=== PATIENT | female | born 1990 | race Caucasian/White ===

== ENCOUNTER 2020-09-07 08:54 | Inpatient (IN) | payer MEDICAID ==
[2020-09-07] MEDS ORDERED: Sodium Chloride 0.9% 1,000 ML IV SCH (09:00)
[2020-09-07] MEDS ORDERED: Penicillin G Potassium 5 MILLUNITS in Sodium Chloride 0.9% 50 ML IV ONE (09:30)
[2020-09-07] MEDS ORDERED: fentaNYL 100 MCG/2 ML SDV IVPUSH PRN (09:59)
[2020-09-07] MEDS ORDERED: Sodium Chloride 0.9% 10 ML Syringe FLUSH PRN (09:59)
--- NOTE | 2020-09-07 10:08 | PCM.LDHP ---
L&D History of Present Illness - General Date of Service: 09/07/20 (labor) Admit Problem/Dx: Patient Status Order with Admit Dx/Problem 09/07/20 09:59 Patient Status [ADT] Routine Admission Diagnosis/Problem Admission Diagnosis/Problem Labor established Source of Information: Patient History Limitations: Reports: No Limitations - History of Present Illness Introduction:: This 29 year old who is 41 2/7 weeks presented in labor. Onset last night. Contractions got stronger over the night and call this morning. Presented Di lation 2-3cm pre staff. Adequate care, healthy GBS positive, will treat ABO O neg, had Rhogam at 29 weeks. 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: : 1 Para: 0 LMP (Approximate): (NURIA 08/29/20) - Infectious Disease History Infectious Disease History: Reports: Chicken Pox - Past Surgical History HEENT Surgical History: Reports: Other (See Below) Other HEENT Surgeries/Procedures: wisdom teeth out Social & Family History - Family History Family Medical History: No Pertinent Family History - Tobacco Use Tobacco Use Status *Q: Never Tobacco User Second Hand Smoke Exposure: No - Caffeine Use Caffeine Use: Reports: Coffee, Tea - Recreational Drug Use Recreational Drug Use: No H&P Review of Systems - Review of Systems: Review Of Systems: See Below General: Reports: No Symptoms HEENT: Reports: No Symptoms Pulmonary: Reports: No Symptoms Cardiovascular: Reports: No Symptoms Gastrointestinal: Reports: No Symptoms Genitourinary: Reports: No Symptoms Musculoskeletal: Reports: No Symptoms Skin: Reports: No Symptoms Psychiatric: Reports: No Symptoms Neurological: Reports: No Symptoms Hematologic/Lymphatic: Reports: No Symptoms Immunologic: Reports: No Symptoms L&D Exam - Exam Exam: See Below - Vital Signs Vital Signs: Last Vital Signs Temp 95.3 F L 09/07/20 09:08 Pulse 107 H 09/07/20 09:08 Resp 16 09/07/20 09:08 BP 135/88 09/07/20 09:08 Pulse Ox 99 09/07/20 09:08 Weight: 203 lb - OB Specific Contraction Intensity: Moderate Movement: Active Heart Tones: Present Heart Tones per Min: 130 Heart Rate (FHR) Variability: Moderate (6-25 bmp) Presentation: Vertex Estimated Weight: 8 pounds - Delacruz Score Delacruz Score Cervix Position: Midposition Delacruz Score Consistency: Soft Delacruz Score Effacement: 51-70% Delacruz Score Dilation: 1-2 cm Delacruz Score Infant's Station: -2 Delacruz Score Total: 7 - Exam General: Alert, Oriented HEENT: PERRLA Neck: Supple Lungs: Normal Respiratory Effort Cardiovascular: Regular Rate, Regular Rhythm GI/Abdominal Exam: Soft, Non-Tender Rectal Exam: Normal Rectal Tone Genitourinary: Normal external exam, Enlarged uterus Back Exam: Full Range of Motion Extremities: No Pedal Edema, Normal Capillary Refill Skin: Warm, Dry Neurological: Cranial Nerves Intact Psychiatric: Alert, Normal Affect, Normal Mood - Patient Data Lab Results Last 24 hrs: Laboratory Results - last 24 hr 09/07/20 09/07/20 09/07/20 Range/Units 09:00 09:00 09:20 WBC 11.2 H (4.5-11.0) K/uL RBC 3.88 (3.30-5.50) M/uL Hgb 13.0 (12.0-15.0) g/dL Hct 37.0 (36.0-48.0) % MCV 95 (80-98) fL MCH 34 H (27-31) pg MCHC 35 (32-36) % Plt Count 147 L (150-400) K/uL Urine Color Yellow (YELLOW) Urine Appearance Cloudy A (CLEAR) Urine pH 6.5 (5.0-8.0) Ur Specific [place] 1.010 (1.008-1.030) Urine Protein Negative (NEGATIVE) mg/dL Urine Glucose (UA) Negative (NEGATIVE) mg/dL Urine Ketones Negative (NEGATIVE) mg/dL Urine Occult Blood Moderate H (NEGATIVE) Urine Nitrite Negative (NEGATIVE) Urine Bilirubin Negative (NEGATIVE) Urine Urobilinogen 0.2 (0.2-1.0) EU/dL Ur Leukocyte Esterase Moderate H (NEGATIVE) Urine RBC Not seen (0-5) Urine WBC 30-40 H (0-5) Ur Epithelial Cells Many Amorphous Sediment Not seen Urine Bacteria Many Urine Mucus Not seen Urine Opiates Screen Negative (NEGATIVE) Ur Oxycodone Screen Negative (NEGATIVE) Urine Methadone Screen Negative (NEGATIVE) Ur Propoxyphene Screen Negative (NEGATIVE) Ur Barbiturates Screen Negative (NEGATIVE) Ur Tricyclics Screen Negative (NEGATIVE) Ur Phencyclidine Scrn Negative (NEGATIVE) Ur Amphetamine Screen Negative (NEGATIVE) U Methamphetamines Scrn Negative (NEGATIVE) Urine MDMA Screen Negative (NEGATIVE) U Benzodiazepines Scrn Negative (NEGATIVE) U Cocaine Metab Screen Negative (NEGATIVE) U Marijuana (THC) Screen Negative (NEGATIVE) Result Diagrams: 09/07/20 09:20 - Problem List (1) Lab test negative for COVID-19 virus SNOMED Code(s): 9826745364732346 ICD Code: Z03.818 - ENCNTR FOR OBS FOR SUSP EXPSR TO OT BIOLG AGENTS RULED OUT Status: Acute Current Visit: Yes (2) GBS (group B Streptococcus carrier), +RV culture, currently SNOMED Code(s): 1040481350377, 957079927, 5332055351466 ICD Code: O99.820 - STREPTOCOCCUS B CARRIER STATE COMPLICATING Status: Acute Current Visit: Yes (3) Active labor at term SNOMED Code(s): 62873838 ICD Code: [id number] - Status: Acute Current Visit: Yes Problem List Initiated/Reviewed/Updated: Yes Orders Last 24hrs: Active Orders 24 hr Category Date Time Status Patient Status [ADT] Routine ADT 09/07/20 09:59 Ordered Antiembolic Devices [RC] .Routine Care 09/07/20 10:02 Ordered Communication Order [RC] ASDIRECTED Care 09/07/20 09:59 Ordered Heart Tones [RC] PER UNIT ROUTINE Care 09/07/20 09:59 Ordered Non Stress Test [RC] Click to Edit Care 09/07/20 09:59 Ordered Notify Provider Vital Signs [RC] PRN Care 09/07/20 09:59 Ordered Notify Provider [RC] PRN Care 09/07/20 09:59 Ordered OB Check [OM.PC] Click to Edit Care 09/07/20 09:00 Ordered Up ad Veronica [RC] ASDIRECTED Care 09/07/20 09:59 Ordered VTE/DVT Education [RC] Click to Edit Care 09/07/20 10:02 Ordered Vital Signs [RC] PER UNIT ROUTINE Care 09/07/20 09:59 Ordered Oxytocin/Normal Saline [Pitocin in NS 20 Units/1,000 ML Med 09/07/20 10:02 Ordered ] 20 unit in 1,000 ml IV ONETIME Penicillin G Potassium [Pfizerpen] 2.5 millunits Med 09/07/20 13:30 Active Sodium Chloride 0.9% [Normal Saline] 50 ml IV Q4H Sodium Chloride 0.9% [Saline Flush] Med 09/07/20 09:59 Ordered 10 ml FLUSH ASDIRECTED PRN fentaNYL [Sublimaze] Med 09/07/20 09:59 Ordered 100 mcg IVPUSH Q1H PRN DVT/VTE Prophylaxis Reflex [OM.PC] Routine Oth 09/07/20 09:59 Ordered Saline Lock Insert [OM.PC] Routine Oth 09/07/20 09:59 Ordered Resuscitation Status Routine Resus Stat 09/07/20 09:59 Ordered Medication Orders Fentanyl (Sublimaze) 100 mcg IVPUSH Q1H PRN PRN Reason: Pain (moderate 4-6) Penicillin G Potassium 2.5 (millunits/ Sodium Chloride) 50 mls @ 100 mls/hr IV Q4H CLAUDINE Oxytocin/Sodium Chloride (Pitocin In Ns 20 Units/1,000 Ml) 20 unit in 1,000 mls @ 999 mls/hr IV ONETIME ONE; Protocol Stop: 09/07/20 11:02 Sodium Chloride (Saline Flush) 10 ml FLUSH ASDIRECTED PRN PRN Reason: Keep Vein Open Assessment/Plan Comment:: 09/07/20 29 year old G1 41 2/7 weeks presents in active labor Plan Pain management pre patient request Treat GBS Plan for vaginal delivery
--- NOTE | 2020-09-07 12:45 | PCM.PNLD ---
Labor Progress Note - VS & Meds Vital Signs: Last Vital Signs Temp 96.4 F L 09/07/20 11:30 Pulse 81 09/07/20 11:30 Resp 16 09/07/20 11:30 BP 129/68 09/07/20 11:30 Pulse Ox 97 09/07/20 11:30 Active Medications: Current Medications Fentanyl (Sublimaze) 100 mcg IVPUSH Q1H PRN PRN Reason: Pain (moderate 4-6) Penicillin G Potassium 2.5 (millunits/ Sodium Chloride) 50 mls @ 100 mls/hr IV Q4H CLAUDINE Sodium Chloride (Saline Flush) 10 ml FLUSH ASDIRECTED PRN PRN Reason: Keep Vein Open Discontinued Medications Penicillin G Potassium 5 (millunits/ Sodium Chloride) 50 mls @ 100 mls/hr IV ONETIME ONE Stop: 09/07/20 09:59 Last Admin: 09/07/20 09:31 Dose: 100 mls/hr Documented by: Oxytocin/Sodium Chloride (Pitocin In Ns 20 Units/1,000 Ml) 20 unit in 1,000 mls @ 999 mls/hr IV ONETIME ONE; Protocol Stop: 09/07/20 11:02 - Uterine Contractions Uterine Monitoring Mode: External [place] Contraction Frequency (min): 4 Contraction Duration (sec): 60-90 Contraction Intensity: Mild to Moderate Uterine Resting Tone: Soft - Monitoring Monitor Mode: Doppler/Auscultation Heart Rate (FHR) Baseline: 130 Heart Rate (FHR) Variability: Moderate (6-25 bmp) Accelerations: Present, 15x15 Decelerations: None Strip Review: Category I - Vaginal Exam Dilation (cm): 5 Effacement (Percent): 90 Station: 0 Cervical Position: Anterior Sterile Vaginal Exam Performed By: Naya Gurrola Vaginal Exam Comment: bag intact, great progress - Labor Progress (Free Text) Labor Progress: plan for vaginal delivery
[2020-09-07] MEDS: Penicillin G Potassium 2.5 MILLUNITS in Sodium Chloride 0.9% 50 ML IV SCH ×3 (13:23→21:31)
--- NOTE | 2020-09-07 14:24 | PCM.PNLD ---
Labor Progress Note - VS & Meds Vital Signs: Last Vital Signs Temp 96.4 F L 09/07/20 11:30 Pulse 81 09/07/20 11:30 Resp 16 09/07/20 11:30 BP 129/68 09/07/20 11:30 Pulse Ox 97 09/07/20 11:30 Active Medications: Current Medications Fentanyl (Sublimaze) 100 mcg IVPUSH Q1H PRN PRN Reason: Pain (moderate 4-6) Penicillin G Potassium 2.5 (millunits/ Sodium Chloride) 50 mls @ 100 mls/hr IV Q4H CLAUDINE Last Admin: 09/07/20 13:23 Dose: 100 mls/hr Documented by: Sodium Chloride (Normal Saline) 1,000 mls @ 100 mls/hr IV ASDIRECTED CLAUDINE Sodium Chloride (Saline Flush) 10 ml FLUSH ASDIRECTED PRN PRN Reason: Keep Vein Open Discontinued Medications Penicillin G Potassium 5 (millunits/ Sodium Chloride) 50 mls @ 100 mls/hr IV ONETIME ONE Stop: 09/07/20 09:59 Last Admin: 09/07/20 09:31 Dose: 100 mls/hr Documented by: Oxytocin/Sodium Chloride (Pitocin In Ns 20 Units/1,000 Ml) 20 unit in 1,000 mls @ 999 mls/hr IV ONETIME ONE; Protocol Stop: 09/07/20 11:02 Oxytocin/Sodium Chloride (Pitocin In Ns 20 Units/1,000 Ml) Confirm Administered Dose 20 unit in 1,000 mls @ as directed .ROUTE .STK-MED ONE Stop: 09/07/20 14:01 Last Admin: 09/07/20 14:07 Dose: Not Given Documented by: - Uterine Contractions Uterine Monitoring Mode: External [place] Contraction Frequency (min): 2.5-4 Contraction Duration (sec): 50-100 Contraction Intensity: Moderate to Strong Uterine Resting Tone: Soft - Monitoring Monitor Mode: Doppler/Auscultation Heart Rate (FHR) Baseline: 130 Heart Rate (FHR) Variability: Moderate (6-25 bmp) Accelerations: Present, 15x15 Decelerations: None Strip Review: Category I - Vaginal Exam Dilation (cm): 5/6 Effacement (Percent): 90 Station: 0 Cervical Position: Anterior Sterile Vaginal Exam Performed By: Naya Gurrola Vaginal Exam Comment: AROM at 1330, thick mec present - Labor Progress (Free Text) Labor Progress: doing great. In tub for pain management interested in epidural for severe pain
--- NOTE | 2020-09-07 15:40 | PCM.PNLD ---
Labor Progress Note - VS & Meds Vital Signs: Last Vital Signs Temp 96.4 F L 09/07/20 11:30 Pulse 81 09/07/20 11:30 Resp 16 09/07/20 11:30 BP 129/68 09/07/20 11:30 Pulse Ox 97 09/07/20 11:30 Active Medications: Current Medications Fentanyl (Sublimaze) 100 mcg IVPUSH Q1H PRN PRN Reason: Pain (moderate 4-6) Penicillin G Potassium 2.5 (millunits/ Sodium Chloride) 50 mls @ 100 mls/hr IV Q4H CLAUDINE Last Admin: 09/07/20 13:23 Dose: 100 mls/hr Documented by: Sodium Chloride (Normal Saline) 1,000 mls @ 100 mls/hr IV ASDIRECTED CLAUDINE Sodium Chloride (Saline Flush) 10 ml FLUSH ASDIRECTED PRN PRN Reason: Keep Vein Open Discontinued Medications Penicillin G Potassium 5 (millunits/ Sodium Chloride) 50 mls @ 100 mls/hr IV ONETIME ONE Stop: 09/07/20 09:59 Last Admin: 09/07/20 09:31 Dose: 100 mls/hr Documented by: Oxytocin/Sodium Chloride (Pitocin In Ns 20 Units/1,000 Ml) 20 unit in 1,000 mls @ 999 mls/hr IV ONETIME ONE; Protocol Stop: 09/07/20 11:02 Oxytocin/Sodium Chloride (Pitocin In Ns 20 Units/1,000 Ml) Confirm Administered Dose 20 unit in 1,000 mls @ as directed .ROUTE .STK-MED ONE Stop: 09/07/20 14:01 Last Admin: 09/07/20 14:07 Dose: Not Given Documented by: - Uterine Contractions Uterine Monitoring Mode: Palpation Contraction Frequency (min): 2-4 Contraction Duration (sec): 50-100 Contraction Intensity: Strong Uterine Resting Tone: Soft - Monitoring Monitor Mode: Doppler/Auscultation Heart Rate (FHR) Baseline: 130 Heart Rate (FHR) Variability: Moderate (6-25 bmp) Accelerations: Present, 15x15 Decelerations: None Strip Review: Category I - Vaginal Exam Dilation (cm): 8 Effacement (Percent): 100 Station: 1 Cervical Position: Anterior Sterile Vaginal Exam Performed By: Naya Gurrola Vaginal Exam Comment: nice progress - Labor Progress (Free Text) Labor Progress: anticipate vaginal delivery
[2020-09-07] MEDS ORDERED: Lanolin 100% Cream 40 GM Tube TOP ONE (20:58)
[2020-09-07] MEDS ORDERED: Witch Hazel Medicated Pads 100/Jar TOP ONE (20:58)
[2020-09-07] MEDS ORDERED: Acetaminophen 325 MG Tab, 50 Tab Bulk Bottle PO PRN (21:00)
[2020-09-07] MEDS ORDERED: Ibuprofen 200 MG Tab, 24 Tab Bulk Bottle PO PRN (21:00)
--- NOTE | 2020-09-07 21:14 | PCM.DEL ---
L & D Note - General Info Date of Service: 09/07/20 (childbirth) Mother's Due Date: 08/29/20 - Delivery Note Labor: Spontaneous Delivery Outcome: Livebirth Infant Delivery Method: Spontaneous Vaginal Delivery-Single Delivery Mode: Spontaneous Presentation: Vertex Nuchal Cord: None Anesthesia Type: Nitrous Oxide Amniotic Fluid Description: Meconium Stained Episiotomy Type: None Laceration: None Placenta: Intact, Spontaneous Cord: 3 Vessels Estimated Blood Loss: 300 : Bulb Syringe, Stimulated, Warmed, [place] Used, Warmer Used Provider: Naya Gurrola Score 1 min: 8 (color, tone) Score 5 min: 9 (color) Second Stage Interventions: Reports: Second Nurse Reviewed Heart Tones, Pushing Effectively, Pushing, Knee Chest Position, Pushing, McRobert's Position Delivery Comments (Free Text/Narrative):: This 29 year old G1 now P1 who is 41 2/7 weeks gestation delivered via a viable male at 2023 over an intact perineum. He was placed on mother's chest where he cried spontaneously. He was a little wet sounds and was takent o the warmer for a minute or two to dry, stimulate, suction and assess, Apgars of 8 and 9. He was returned to mother's chest for first feeding. Three vessel cord. Delayed cord clamping and active management of the third stage were done. Placenta was expressed spontaneously intact. A small tear of the hymenal ring was tamponade and quit bleeding without repair. No other lacerations were found. EBL 300cc Mother and baby to post in good condition. First stage 6849-2254 Second stage 1209-1692 Third stage 1877-8837 - General Info Date of Service: 09/07/20 Functional Status: Reports: Pain Controlled - Review of Systems General: Reports: No Symptoms HEENT: Reports: No Symptoms Pulmonary: Reports: No Symptoms Cardiovascular: Reports: No Symptoms Gastrointestinal: Reports: No Symptoms Genitourinary: Reports: No Symptoms Musculoskeletal: Reports: No Symptoms Skin: Reports: No Symptoms Neurological: Reports: No Symptoms Psychiatric: Reports: No Symptoms - Patient Data Vitals - Most Recent: Last Vital Signs Temp 96.4 F L 09/07/20 15:55 Pulse 71 09/07/20 15:55 Resp 18 09/07/20 15:55 BP 129/86 12/14/20 15:55 Pulse Ox 97 09/07/20 15:55 Weight - Most Recent: 203 lb I&O - Last 24 Hours: Intake & Output 09/07/20 09/07/20 09/07/20 06:59 14:59 22:59 Intake Total 100 50 Balance 100 50 Lab Results Last 24 Hours: Laboratory Results - last 24 hr 09/07/20 09/07/20 09/07/20 Range/Units 09:00 09:00 09:20 WBC 11.2 H (4.5-11.0) K/uL RBC 3.88 (3.30-5.50) M/uL Hgb 13.0 (12.0-15.0) g/dL Hct 37.0 (36.0-48.0) % MCV 95 (80-98) fL MCH 34 H (27-31) pg MCHC 35 (32-36) % Plt Count 147 L (150-400) K/uL Urine Color Yellow (YELLOW) Urine Appearance Cloudy A (CLEAR) Urine pH 6.5 (5.0-8.0) Ur Specific [place] 1.010 (1.008-1.030) Urine Protein Negative (NEGATIVE) mg/dL Urine Glucose (UA) Negative (NEGATIVE) mg/dL Urine Ketones Negative (NEGATIVE) mg/dL Urine Occult Blood Moderate H (NEGATIVE) Urine Nitrite Negative (NEGATIVE) Urine Bilirubin Negative (NEGATIVE) Urine Urobilinogen 0.2 (0.2-1.0) EU/dL Ur Leukocyte Esterase Moderate H (NEGATIVE) Urine RBC Not seen (0-5) Urine WBC 30-40 H (0-5) Ur Epithelial Cells Many Amorphous Sediment Not seen Urine Bacteria Many Urine Mucus Not seen Urine Opiates Screen Negative (NEGATIVE) Ur Oxycodone Screen Negative (NEGATIVE) Urine Methadone Screen Negative (NEGATIVE) Ur Propoxyphene Screen Negative (NEGATIVE) Ur Barbiturates Screen Negative (NEGATIVE) Ur Tricyclics Screen Negative (NEGATIVE) Ur Phencyclidine Scrn Negative (NEGATIVE) Ur Amphetamine Screen Negative (NEGATIVE) U Methamphetamines Scrn Negative (NEGATIVE) Urine MDMA Screen Negative (NEGATIVE) U Benzodiazepines Scrn Negative (NEGATIVE) U Cocaine Metab Screen Negative (NEGATIVE) U Marijuana (THC) Screen Negative (NEGATIVE) Med Orders - Current: Current Medications Acetaminophen (Tylenol Bulk Bottle) 325 - 650 mg PO Q4H PRN PRN Reason: Pain Fentanyl (Sublimaze) 100 mcg IVPUSH Q1H PRN PRN Reason: Pain (moderate 4-6) Penicillin G Potassium 2.5 (millunits/ Sodium Chloride) 50 mls @ 100 mls/hr IV Q4H [facility] Last Admin: 09/07/20 17:18 Dose: 100 mls/hr Documented by: Sodium Chloride (Normal Saline) 1,000 mls @ 100 mls/hr IV ASDIRECTED [facility] Last Admin: 09/07/20 10:00 Dose: 100 mls/hr Documented by: Ibuprofen (Motrin Bulk Bottle) 600 mg PO Q6H PRN PRN Reason: Pain Sodium Chloride (Saline Flush) 10 ml FLUSH ASDIRECTED PRN PRN Reason: Keep Vein Open Discontinued Medications Emollient Ointment (Lansinoh Hpa) 1 gm TOP ASDIRECTED ONE Stop: 09/07/20 20:59 Penicillin G Potassium 5 (millunits/ Sodium Chloride) 50 mls @ 100 mls/hr IV ONETIME ONE Stop: 09/07/20 09:59 Last Admin: 09/07/20 09:31 Dose: 100 mls/hr Documented by: Oxytocin/Sodium Chloride (Pitocin In Ns 20 Units/1,000 Ml) 20 unit in 1,000 mls @ 999 mls/hr IV ONETIME ONE; Protocol Stop: 09/07/20 11:02 Oxytocin/Sodium Chloride (Pitocin In Ns 20 Units/1,000 Ml) Confirm Administered Dose 20 unit in 1,000 mls @ as directed .ROUTE .STK-MED ONE Stop: 09/07/20 14:01 Last Admin: 09/07/20 14:07 Dose: Not Given Documented by: Radha Reina) 1 pad TOP ASDIRECTED ONE Stop: 09/07/20 20:59 - Exam General: Alert, Oriented HEENT: Pupils Equal Lungs: Normal Respiratory Effort Cardiovascular: Regular Rate, Regular Rhythm GI/Abdominal Exam: Normal Bowel Sounds, Non-Tender (Female) Exam: Cervical Dilatation, Enlarged Uterus, Vaginal Bleeding Back Exam: Full Range of Motion Extremities: No Pedal Edema, Normal Capillary Refill Skin: Warm, Dry Psy/Mental Status: Alert, Normal Affect, Normal Mood - Problem List & Annotations (1) Lab test negative for COVID-19 virus SNOMED Code(s): 1367103831606869 Code(s): Z03.818 - ENCNTR FOR OBS FOR SUSP EXPSR TO OT BIOLG AGENTS RULED OUT Status: Acute Current Visit: Yes (2) GBS (group B Streptococcus carrier), +RV culture, currently SNOMED Code(s): 1687020092418, 419191606, 1495981988367 Code(s): O99.820 - STREPTOCOCCUS B CARRIER STATE COMPLICATING Status: Acute Current Visit: Yes (3) Active labor at term SNOMED Code(s): 66391761 Code(s): AZL7658 - Status: Acute Current Visit: Yes (4) Vaginal delivery SNOMED Code(s): 622713919 Code(s): O80 - ENCOUNTER FOR FULL-TERM UNCOMPLICATED DELIVERY Status: Acute Current Visit: Yes (5) () SNOMED Code(s): 918728661 Code(s): Z78.9 - OTHER SPECIFIED HEALTH STATUS Status: Acute Current Visit: Yes (6) Blood type O- SNOMED Code(s): 971016157 Code(s): Z67.41 - TYPE O BLOOD, RH NEGATIVE Status: Acute Current Visit: Yes - Problem List Review Problem List Initiated/Reviewed/Updated: Yes - My Orders Last 24 Hours: My Active Orders 09/07/20 09:00 OB Check [OM.PC] Click To Edit Sodium Chloride 0.9% [Normal Saline] 1,000 ml IV ASDIRECTED 09/07/20 09:59 Communication Order [RC] ASDIRECTED Notify Provider Vital Signs [RC] PRN Notify Provider [RC] PRN Up ad Evronica [RC] ASDIRECTED Vital Signs [RC] PER UNIT ROUTINE Sodium Chloride 0.9% [Saline Flush] 10 ml FLUSH ASDIRECTED PRN fentaNYL [Sublimaze] 100 mcg IVPUSH Q1H PRN DVT/VTE Prophylaxis Reflex [OM.PC] Routine Saline Lock Insert [OM.PC] Routine Resuscitation Status Routine 09/07/20 10:02 Antiembolic Devices [RC] .Routine VTE/DVT Education [RC] Click to Edit 09/07/20 13:30 Penicillin G Potassium [Pfizerpen] 2.5 millunits Sodium Chloride 0.9% [Normal Saline] 50 ml IV Q4H 09/07/20 20:58 Patient Status [ADT] Routine Vital Signs [RC] PFP Assess Lochia [WOMSER] Per Unit Routine Assess Uterine Involution [WOMSER] Per Unit Routine Perineal Care [OM.PC] Per Unit Routine Peripheral IV Discontinue [OM.PC] Routine Sitz Bath [OM.PC] Per Unit Routine 09/07/20 21:00 Acetaminophen [Tylenol Bulk Bottle] 325 - 650 mg PO Q4H PRN Ibuprofen [Motrin Bulk Bottle] 600 mg PO Q6H PRN 09/08/20 05:11 CBC W/O DIFF,HEMOGRAM [HEME] AM 09/08/20 Breakfast Regular Diet [DIET] - Assessment Assessment:: 09/07/20 29 year old 41 2/7 weeks without complications male ABO O neg GBS positive and treated. - Plan Plan:: 09/07/20 29 year old G1 41 2/7 weeks presents in active labor Plan Pain management pre patient request Treat GBS Plan for vaginal delivery 09/07/20 Routine cares possible Rhogam support breast feeding 24-48 hour stay
[2020-09-08] MEDS ORDERED: Lanolin 100% Cream 40 GM Tube TOP PRN (07:14)
[2020-09-08] MEDS ORDERED: Witch Hazel Medicated Pads 100/Jar TOP PRN (07:14)
--- NOTE | 2020-09-08 08:27 | PCM.PNPP ---
- General Info Date of Service: 09/08/20 Functional Status: Reports: Pain Controlled - Review of Systems General: Reports: No Symptoms HEENT: Reports: No Symptoms Pulmonary: Reports: No Symptoms Cardiovascular: Reports: No Symptoms Gastrointestinal: Reports: No Symptoms Genitourinary: Reports: No Symptoms Musculoskeletal: Reports: No Symptoms Skin: Reports: No Symptoms Neurological: Reports: No Symptoms Psychiatric: Reports: No Symptoms - General Info Date of Service: 09/08/20 - Patient Data Vital Signs - Most Recent: Last Vital Signs Temp 36.7 C 09/08/20 08:23 Pulse 84 09/08/20 08:23 Resp 16 09/08/20 08:23 BP 132/80 09/08/20 08:23 Pulse Ox 97 09/08/20 08:23 Weight - Most Recent: 92.079 kg I&O - Last 24 Hours: Intake & Output 09/07/20 09/08/20 09/08/20 22:59 06:59 14:59 Intake Total 50 Balance 50 Lab Results - Last 24 Hours: Laboratory Results - last 24 hr 09/07/20 09/07/20 09/07/20 Range/Units 09:00 09:00 09:20 WBC 11.2 H (4.5-11.0) K/uL RBC 3.88 (3.30-5.50) M/uL Hgb 13.0 (12.0-15.0) g/dL Hct 37.0 (36.0-48.0) % MCV 95 (80-98) fL MCH 34 H (27-31) pg MCHC 35 (32-36) % Plt Count 147 L (150-400) K/uL Urine Color Yellow (YELLOW) Urine Appearance Cloudy A (CLEAR) Urine pH 6.5 (5.0-8.0) Ur Specific [place] 1.010 (1.008-1.030) Urine Protein Negative (NEGATIVE) mg/dL Urine Glucose (UA) Negative (NEGATIVE) mg/dL Urine Ketones Negative (NEGATIVE) mg/dL Urine Occult Blood Moderate H (NEGATIVE) Urine Nitrite Negative (NEGATIVE) Urine Bilirubin Negative (NEGATIVE) Urine Urobilinogen 0.2 (0.2-1.0) EU/dL Ur Leukocyte Esterase Moderate H (NEGATIVE) Urine RBC Not seen (0-5) Urine WBC 30-40 H (0-5) Ur Epithelial Cells Many Amorphous Sediment Not seen Urine Bacteria Many Urine Mucus Not seen Urine Opiates Screen Negative (NEGATIVE) Ur Oxycodone Screen Negative (NEGATIVE) Urine Methadone Screen Negative (NEGATIVE) Ur Propoxyphene Screen Negative (NEGATIVE) Ur Barbiturates Screen Negative (NEGATIVE) Ur Tricyclics Screen Negative (NEGATIVE) Ur Phencyclidine Scrn Negative (NEGATIVE) Ur Amphetamine Screen Negative (NEGATIVE) U Methamphetamines Scrn Negative (NEGATIVE) Urine MDMA Screen Negative (NEGATIVE) U Benzodiazepines Scrn Negative (NEGATIVE) U Cocaine Metab Screen Negative (NEGATIVE) U Marijuana (THC) Screen Negative (NEGATIVE) Blood Type Gel Antibody Screen 09/08/20 09/08/20 Range/Units 04:00 07:00 WBC 16.9 H (4.5-11.0) K/uL RBC 3.50 (3.30-5.50) M/uL Hgb 11.5 L (12.0-15.0) g/dL Hct 34.0 L (36.0-48.0) % MCV 97 (80-98) fL MCH 33 H (27-31) pg MCHC 34 (32-36) % Plt Count 132 L (150-400) K/uL Urine Color (YELLOW) Urine Appearance (CLEAR) Urine pH (5.0-8.0) Ur Specific [place] (1.008-1.030) Urine Protein (NEGATIVE) mg/dL Urine Glucose (UA) (NEGATIVE) mg/dL Urine Ketones (NEGATIVE) mg/dL Urine Occult Blood (NEGATIVE) Urine Nitrite (NEGATIVE) Urine Bilirubin (NEGATIVE) Urine Urobilinogen (0.2-1.0) EU/dL Ur Leukocyte Esterase (NEGATIVE) Urine RBC (0-5) Urine WBC (0-5) Ur Epithelial Cells Amorphous Sediment Urine Bacteria Urine Mucus Urine Opiates Screen (NEGATIVE) Ur Oxycodone Screen (NEGATIVE) Urine Methadone Screen (NEGATIVE) Ur Propoxyphene Screen (NEGATIVE) Ur Barbiturates Screen (NEGATIVE) Ur Tricyclics Screen (NEGATIVE) Ur Phencyclidine Scrn (NEGATIVE) Ur Amphetamine Screen (NEGATIVE) U Methamphetamines Scrn (NEGATIVE) Urine MDMA Screen (NEGATIVE) U Benzodiazepines Scrn (NEGATIVE) U Cocaine Metab Screen (NEGATIVE) U Marijuana (THC) Screen (NEGATIVE) Blood Type O NEGATIVE Gel Antibody Screen Negative Med Orders - Current: Current Medications Acetaminophen (Tylenol Bulk Bottle) 325 - 650 mg PO Q4H PRN PRN Reason: Pain Last Admin: 09/07/20 23:06 Dose: 1 bottle Documented by: Emollient Ointment (Lansinoh Hpa) 1 gm TOP ASDIRECTED PRN PRN Reason: PAIN Sodium Chloride (Normal Saline) 1,000 mls @ 100 mls/hr IV ASDIRECTED CLAUDINE Last Admin: 09/07/20 10:00 Dose: 100 mls/hr Documented by: Ibuprofen (Motrin Bulk Bottle) 600 mg PO Q6H PRN PRN Reason: Pain Last Admin: 09/07/20 23:05 Dose: 1 bottle Documented by: Sodium Chloride (Saline Flush) 10 ml FLUSH ASDIRECTED PRN PRN Reason: Keep Vein Open Radha Mireles ([place]) 1 pad TOP ASDIRECTED PRN PRN Reason: DISCOMFORT Discontinued Medications Emollient Ointment (Lansinoh Hpa) 1 gm TOP ASDIRECTED ONE Stop: 09/07/20 20:59 Last Admin: 09/07/20 23:04 Dose: 1 bottle Documented by: Fentanyl (Sublimaze) 100 mcg IVPUSH Q1H PRN PRN Reason: Pain (moderate 4-6) Penicillin G Potassium 5 (millunits/ Sodium Chloride) 50 mls @ 100 mls/hr IV ONETIME ONE Stop: 09/07/20 09:59 Last Admin: 09/07/20 09:31 Dose: 100 mls/hr Documented by: Penicillin G Potassium 2.5 (millunits/ Sodium Chloride) 50 mls @ 100 mls/hr IV Q4H [facility] Last Admin: 09/07/20 21:31 Dose: Not Given Documented by: Oxytocin/Sodium Chloride (Pitocin In Ns 20 Units/1,000 Ml) 20 unit in 1,000 mls @ 999 mls/hr IV ONETIME ONE; Protocol Stop: 09/07/20 11:02 Last Admin: 09/07/20 20:25 Dose: 999 mls/hr, 999 mls/hr Documented by: Oxytocin/Sodium Chloride (Pitocin In Ns 20 Units/1,000 Ml) Confirm Administered Dose 20 unit in 1,000 mls @ as directed .ROUTE .STK-MED ONE Stop: 09/07/20 14:01 Last Admin: 09/07/20 14:07 Dose: Not Given [facility]ed [facility]: [facility] TOP ASDIRECTED ONE Stop: 09/07/20 20:59 Last Admin: 09/07/20 23:04 Dose: 1 bottle Documented by: - Interaction Infant Disposition, : [place] in Room with Family Infant Interaction: Holding Feeding: Breastfed ; Nursed Well Support Person: - Recovery Exam Fundal Tone: Firm Fundal Level: At Umbilicus Fundal Placement: Midline Lochia Amount: Moderate Lochia Color: Rubra/Red Perineum Description: Edematous Episiotomy/Laceration: Approximated Bladder Status: Voiding Urinary Elimination: Voided - Exam General: Alert, Oriented HEENT: Pupils Equal, Pupils Reactive, Mucous Membr. Moist/[place] Neck: Supple Lungs: Clear to Auscultation, Normal Respiratory Effort Cardiovascular: Regular Rate, Regular Rhythm GI/Abdominal Exam: Normal Bowel Sounds, Soft, Non-Tender, No Distention, No Mass, Pelvis Stable Extremities: Normal Inspection, Normal Range of Motion, Non-Tender, No Pedal Edema, Normal Capillary Refill Skin: Warm, Dry, Intact Neurological: No New Focal Deficit Psy/Mental Status: Alert, Normal Affect, Normal Mood - Problem List & Annotations (1) Active labor at term SNOMED Code(s): 10703323 Code(s): GWL6996 - Status: Acute Current Visit: Yes (2) Blood type O- SNOMED Code(s): 209276422 Code(s): Z67.41 - TYPE O BLOOD, RH NEGATIVE Status: Acute Current Visit: Yes (3) () SNOMED Code(s): 446839358 Code(s): Z78.9 - OTHER SPECIFIED HEALTH STATUS Status: Acute Current Visit: Yes (4) GBS (group B Streptococcus carrier), +RV culture, currently SNOMED Code(s): 7961692827200, 095282718, 1640782046069 Code(s): O99.820 - STREPTOCOCCUS B CARRIER STATE COMPLICATING Status: Acute Current Visit: Yes (5) Lab test negative for COVID-19 virus SNOMED Code(s): 3131825062343518 Code(s): Z03.818 - ENCNTR FOR OBS FOR SUSP EXPSR TO OTH BIOLG AGENTS RULED OUT Status: Acute Current Visit: Yes (6) Vaginal delivery SNOMED Code(s): 234862962 Code(s): O80 - ENCOUNTER FOR FULL-TERM UNCOMPLICATED DELIVERY Status: Acute Current Visit: Yes - Problem List Review Problem List Initiated/Reviewed/Updated: Yes - Assessment Assessment:: 09/07/20 29 year old 41 2/7 weeks without complications male ABO O neg GBS positive and treated. 09/08/20 PP day one, no complications FF and bleeding light to moderate Hgb 11.5 going fair to well Needs rhogam - Plan Plan:: 09/07/20 29 year old G1 41 2/7 weeks presents in active labor Plan Pain management pre patient request Treat GBS Plan for vaginal delivery 09/07/20 Routine cares possible Rhogam support breast feeding 24-48 hour stay 09/08/20 Routine cares support Rhogam today Anticipate discharge tomorrow early evening due to GBS positive
--- NOTE | 2020-09-09 08:34 | PCM.PNPP ---
- General Info Date of Service: 09/09/20 Functional Status: Reports: Pain Controlled - Review of Systems General: Reports: No Symptoms HEENT: Reports: No Symptoms Pulmonary: Reports: No Symptoms Cardiovascular: Reports: No Symptoms Gastrointestinal: Reports: No Symptoms Genitourinary: Reports: No Symptoms Musculoskeletal: Reports: No Symptoms Skin: Reports: No Symptoms Neurological: Reports: No Symptoms Psychiatric: Reports: No Symptoms - General Info Date of Service: 09/09/20 - Patient Data Vital Signs - Most Recent: Last Vital Signs Temp 36.0 C L 09/09/20 07:49 Pulse 71 09/09/20 07:49 Resp 16 09/09/20 07:49 BP 139/85 09/09/20 07:49 Pulse Ox 97 09/09/20 07:49 Weight - Most Recent: 92.079 kg I&O - Last 24 Hours: Intake & Output 09/08/20 09/09/20 09/09/20 22:59 06:59 14:59 Intake Total 1999 1000 Balance 1999 1000 Lab Results - Last 24 Hours: Laboratory Results - last 24 hr 09/08/20 Range/Units 07:00 Blood Type O NEGATIVE Gel Antibody Screen Negative Screen Negative Rhogam Indicated Yes, baby rh pos Med Orders - Current: Current Medications Acetaminophen (Tylenol Bulk Bottle) 325 - 650 mg PO Q4H PRN PRN Reason: Pain Last Admin: 09/07/20 23:06 Dose: 1 bottle Documented by: Emollient Ointment (Lansinoh Hpa) 1 gm TOP ASDIRECTED PRN PRN Reason: PAIN Ibuprofen (Motrin Bulk Bottle) 600 mg PO Q6H PRN PRN Reason: Pain Last Admin: 09/07/20 23:05 Dose: 1 bottle Documented by: Sodium Chloride (Saline Flush) 10 ml FLUSH ASDIRECTED PRN PRN Reason: Keep Vein Open Witch Aline (Tucks) 1 pad TOP ASDIRECTED PRN PRN Reason: DISCOMFORT Discontinued Medications Emollient Ointment (Lansinoh Hpa) 1 gm TOP ASDIRECTED ONE Stop: 09/07/20 20:59 Last Admin: 09/07/20 23:04 Dose: 1 bottle Documented by: Fentanyl (Sublimaze) 100 mcg IVPUSH Q1H PRN PRN Reason: Pain (moderate 4-6) Penicillin G Potassium 5 (millunits/ Sodium Chloride) 50 mls @ 100 mls/hr IV ONETIME ONE Stop: 09/07/20 09:59 Last Admin: 09/07/20 09:31 Dose: 100 mls/hr Documented by: Penicillin G Potassium 2.5 (millunits/ Sodium Chloride) 50 mls @ 100 mls/hr IV Q4H [facility] Last Admin: 09/07/20 21:31 Dose: Not Given Documented by: Oxytocin/Sodium Chloride (Pitocin In Ns 20 Units/1,000 Ml) 20 unit in 1,000 mls @ 999 mls/hr IV ONETIME ONE; Protocol Stop: 09/07/20 11:02 Last Admin: 09/07/20 20:25 Dose: 999 mls/hr, 999 mls/hr Documented by: Oxytocin/Sodium Chloride (Pitocin In Ns 20 Units/1,000 Ml) Confirm Administered Dose 20 unit in 1,000 mls @ as directed .ROUTE .STK-MED ONE Stop: 09/07/20 14:01 Last Admin: 09/07/20 14:07 Dose: Not Given Documented by: Sodium Chloride (Normal Saline) 1,000 mls @ 100 mls/hr IV ASDIRECTED [facility] Last Admin: 09/07/20 10:00 Dose: 100 mls/hr [facility]ed [facility]: [facility] TOP ASDIRECTED ONE Stop: 09/07/20 20:59 Last Admin: 09/07/20 23:04 Dose: 1 bottle Documented by: - Interaction Infant Disposition, : [place] in Room with Family Interaction: Holding Feeding: Breastfed ; Nursed Well Support Person: - Recovery Exam Fundal Tone: Firm Fundal Level: 1 Fingerbreadths Below Umbilicus Fundal Placement: Midline Lochia Amount: Small Lochia Color: Rubra/Red Perineum Description: Intact, Minimal Bruising/Swelling Episiotomy/Laceration: None Bladder Status: Voiding Urinary Elimination: Voided - Exam General: Alert, Oriented HEENT: Pupils Equal, Pupils Reactive, Mucous Membr. Moist/[place] Neck: Supple Lungs: Clear to Auscultation, Normal Respiratory Effort Cardiovascular: Regular Rate, Regular Rhythm GI/Abdominal Exam: Normal Bowel Sounds, Soft, No Distention, No Mass, Pelvis Stable Extremities: Normal Inspection, Normal Range of Motion, Non-Tender, No Pedal Edema, Normal Capillary Refill Skin: Warm, Dry, Intact Neurological: No New Focal Deficit Psy/Mental Status: Alert, Normal Affect, Normal Mood - Problem List & Annotations (1) Active labor at term SNOMED Code(s): 38145769 Code(s): HWM7474 - Status: Acute Current Visit: Yes (2) Blood type O- SNOMED Code(s): 952795830 Code(s): Z67.41 - TYPE O BLOOD, RH NEGATIVE Status: Acute Current Visit: Yes (3) () SNOMED Code(s): 929192583 Code(s): Z78.9 - OTHER SPECIFIED HEALTH STATUS Status: Acute Current Visit: Yes (4) GBS (group B Streptococcus carrier), +RV culture, currently SNOMED Code(s): 4347368532135, 354670126, 6650069764951 Code(s): O99.820 - STREPTOCOCCUS B CARRIER STATE COMPLICATING Status: Acute Current Visit: Yes (5) Lab test negative for COVID-19 virus SNOMED Code(s): 7081516045363702 Code(s): Z03.818 - ENCNTR FOR OBS FOR SUSP EXPSR TO OTH BIOLG AGENTS RULED OUT Status: Acute Current Visit: Yes (6) Vaginal delivery SNOMED Code(s): 524405920 Code(s): O80 - ENCOUNTER FOR FULL-TERM UNCOMPLICATED DELIVERY Status: Acute Current Visit: Yes - Problem List Review Problem List Initiated/Reviewed/Updated: Yes - Assessment Assessment:: 09/07/20 29 year old 41 2/7 weeks without complications male ABO O neg GBS positive and treated. 09/08/20 PP day one, no complications FF and bleeding light to moderate Hgb 11.5 going fair to well Needs rhogam 09/09/20 PP day 2 without complications FF and bleeding light going much better overnight Ready for discharge - Plan Plan:: 09/07/20 29 year old G1 41 2/7 weeks presents in active labor Plan Pain management pre patient request Treat GBS Plan for vaginal delivery 09/07/20 Routine cares possible Rhogam support breast feeding 24-48 hour stay 09/08/20 Routine cares support Rhogam today Anticipate discharge tomorrow early evening due to GBS positive 09/09/20 Routine cares support Discharge home today 6 week check in clinic
== END 2020-09-09 14:50 | disposition home or self-care (01) | DRG 807 ==
LOC: JP.OBCHECK 08:54 → JP.OB 09:25 → OBSVTOIN 20:24 → JP.MS 09-08 00:15
PROVIDERS: ADMIT Nurse Practitioner Family; ATTEND Nurse Practitioner Family
PROC: 10E0XZZ Delivery of Products of Conception, External Approach (ICD-10-PCS; principal; 2020-09-07)
DX: O48.0 Post-term pregnancy (principal); Z37.0 Single live birth; O99.824 Streptococcus B carrier state complicating childbirth; O77.0 Labor and delivery complicated by meconium in amniotic fluid; Z20.828 Contact with and (suspected) exposure to other viral communicable diseases; Z3A.41 41 weeks gestation of pregnancy
CPT/HCPCS: 36415; 36430; 59409; 80305-QW; 81001; 85027; 85460; 86850; 86900; 86901; 99211; A9270-GY; J2540; J2590; J2790; J7030